=== PATIENT | male | born 1935 | race Caucasian/White ===

== ENCOUNTER 2020-08-03 19:53 | Emergency (ER) | payer OTHER ==
[~2020-08-03] VITALS: Ht 172.7 cm; Wt 62.6 kg
[2020-08-03 19:58] VITALS: BP 103/66
== END 2020-08-03 20:30 | disposition home or self-care (01) ==
LOC: ER 19:53
DX: J06.9 Acute upper respiratory infection, unspecified (principal); I10 Essential (primary) hypertension; K21.9 Gastro-esophageal reflux disease without esophagitis

== ENCOUNTER 2021-04-27 11:54 | Emergency (ER) | payer OTHER ==
[~2021-04-27] VITALS: Ht 177.8 cm; Wt 59.9 kg
[2021-04-27] MEDS ORDERED: SERTRALINE HCL100 MG PO (12:17)
[2021-04-27] MEDS ORDERED: COZAAR 25 MG TA25 M1 PO (12:17)
[2021-04-27] MEDS ORDERED: PROSCAR 5MG TABL5 M1 PO (12:17)
[2021-04-27] MEDS ORDERED: BENZONATATE200 MG PO (12:18)
[2021-04-27] MEDS ORDERED: SIMVASTATIN80 MG PO (12:18)
[2021-04-27] MEDS ORDERED: TRAZODONE HCL100 MG PO (12:18)
[2021-04-27] MEDS ORDERED: PROTONIX40 M4 PO (12:19)
[2021-04-27] MEDS ORDERED: OXYBUTYNIN 5 MG5 M2 PO (12:19)
[2021-04-27 12:32] LABS: ABSOLUTE NEUTROPHILS 5.9 thou/uL (1.4-8.2); BASOPHILS 0.3 % (0.0-2.0); EOSINOPHILS 0.6 % (0.0-3.0); HEMATOCRIT 34.2 % (42.0-52.0); HEMOGLOBIN 11.6 gm/dL (14.0-18.0); LYMPHOCYTES 15.8 % (24.0-44.0); MCH 28.2 pg (26.0-34.0); MCHC 33.8 g/dL (28.0-37.0); MCV 83.4 fL (80.0-100.0); MONOCYTES 6.2 % (1.0-8.0); PLATELET COUNT 218 thou/uL (150-400); POLYS 77.1 % (36.0-66.0); RDW 13.6 % (10.5-14.5); WBC 7.6 thou/uL (4.0-11.0)
[2021-04-27 12:51] LABS: ANION GAP 9 mmol/L (7-16); BUN 22 mg/dL (7-18); CALCIUM 7.7 mg/dL (8.5-10.1); CHLORIDE 108 mmol/L (98-107); CO2 24 mmol/L (21-32); CREATININE 1.3 mg/dL (0.7-1.3); GLUCOSE 102 mg/dL (74-106); POTASSIUM 3.5 mmol/L (3.5-5.1); SODIUM 141 mmol/L (136-145)
[2021-04-27 12:56] LABS: SGOT 13 U/L (15-37); SGPT 17 U/L (16-63); TOTAL BILIRUBIN 0.9 mg/dL (0.2-1.0); TOTAL PROTEIN 6.4 g/dL (6.4-8.2); TROPONIN-I <0.06 ng/mL (<0.06)
[2021-04-27 14:59] LABS: URINE BILIRUBIN NEGATIVE (Negative); URINE BLOOD NEGATIVE (Negative); URINE CLARITY CLEAR; URINE COLOR YELLOW; URINE GLUCOSE-RANDOM* NEGATIVE (Negative); URINE KETONES NEGATIVE (Negative); URINE LEUKOCYTES-REFLEX NEGATIVE (Negative); URINE NITRITE-REFLEX NEGATIVE (Negative); URINE PROTEIN (DIPSTICK) NEGATIVE (Negative); URINE SPECIFIC GRAVITY 1.015 (1.005-1.035)
[2021-04-27 16:07] VITALS: BP 136/59
--- NOTE | 2021-04-28 10:29 | EKG ---
[address] [place] [address] ELECTROCARDIOGRAM REPORT Name: FLEX CLAY [id number] Admission: 04/27/21 Attend Phys: Discharge: 04/27/21 Date of : 37 Report #: [id number] [facility] ED Test Date: 2021-04-27 Test Time: 12:04:01 Pat Name: FLEX CLAY Department: Room: Gender: Class A [employer] Drivers: ARMAND : 1935 Requested By: Lara Millard Order Number: [id number] MD: Crispin Chacko Measurements Intervals [place] Rate: 62 P: -25 TX: 142 QRS: 32 QRSD: 89 T: 63 QT: 387 QTc: 393 Interpretive Statements Sinus rhythm Abnormal R-wave progression, early transition No previous ECG available for comparison Electronically Signed On 04-28-2021 10:28:55 CDT by Crispin Chacko [email or web address] <ELECTRONICALLY SIGNED> By: Crispin Chacko MD, [facility] 04/28/21 1028 1204 1204 Crispin Chacko MD, FAC /EPI
== END 2021-04-27 16:04 | disposition home or self-care (01) ==
LOC: ER 11:54
PROVIDERS: Physician Assistant
DX: R55 Syncope and collapse (principal); I10 Essential (primary) hypertension; K21.9 Gastro-esophageal reflux disease without esophagitis; Z79.899 Other long term (current) drug therapy

== ENCOUNTER → 2021-12-02 | Outpatient (CLI) | payer OTHER ==
[~2021-12-02] MED LIST: BENZONATATE200 MG PO; COZAAR 25 MG TA25 M1 PO; OXYBUTYNIN 5 MG5 M2 PO; PROSCAR 5MG TABL5 M1 PO; PROTONIX40 M4 PO; SERTRALINE HCL100 MG PO; SIMVASTATIN80 MG PO; TRAZODONE HCL100 MG PO
[2021-12-02 08:41] LABS: BASOPHILS 0.2 % (0.0-2.0); HEMATOCRIT 39.1 % (42.0-52.0); LYMPHOCYTES 13.2 % (24.0-44.0); MCH 27.7 pg (26.0-34.0); MCHC 33.2 g/dL (28.0-37.0); MCV 83.6 fL (80.0-100.0); MONOCYTES 4.3 % (1.0-8.0); PLATELET COUNT 207 thou/uL (150-400); POLYS 80.3 % (36.0-66.0); RBC 4.68 mil/uL (4.50-6.00); RDW 15.1 % (10.5-14.5); WBC 7.5 thou/uL (4.0-11.0)
[2021-12-02 09:09] LABS: ALBUMIN 3.5 g/dL (3.4-5.0); CALCIUM 8.5 mg/dL (8.5-10.1); POTASSIUM 3.8 mmol/L (3.5-5.1); TOTAL BILIRUBIN 0.6 mg/dL (0.2-1.0); TOTAL PROTEIN 7.3 g/dL (6.4-8.2)
== END ==
LOC: MRI 11-26 15:03
PROVIDERS: ATTEND Psychiatry & Neurology Neuromuscular Medicine
DX: F03.90 Unspecified dementia, unspecified severity, without behavioral disturbance, psychotic disturbance, mood disturbance, and anxiety (principal); Z87.820 Personal history of traumatic brain injury; Z86.59 Personal history of other mental and behavioral disorders